=== PATIENT | female | born 1960 | race American Indian/Alaskan Native ===

== ENCOUNTER 2020-12-03 14:43 | Inpatient (IN) | payer OTHER, SELFPAY ==
[2020-12-03] MEDS ORDERED: ASPIRIN 325 MG TAB PO ONE (14:54)
--- NOTE | 2020-12-03 15:40 | XRay Report ---
CHEST 2 VIEWS INDICATION / CLINICAL INFORMATION: CP/ DIFFICULTY BREATHING. COMPARISON: None available. FINDINGS: SUPPORT DEVICES: None. HEART / MEDIASTINUM: No significant abnormality. LUNGS / PLEURA: Diffuse bilateral pulmonary opacities most significant in the left lower lung. No pne umothorax. Signer Name: Jacob Alvarenga MD Signed: 12/03/2020 3:36 PM Workstation Name: [email or web address]
[2020-12-03 16:14] LABS: Basophils % (Auto) 0.6 % (0.0-1.8); Eosinophils % (Auto) 0.2 % (0.0-4.3); Hematocrit 37.4 % (30.3-42.9); Hemoglobin 12.2 gm/dl (10.1-14.3); Lymphocytes # (Auto) 0.6 K/mm3 (1.2-5.4); Lymphocytes % (Auto) 7.5 % (13.4-35.0); Mean Corpuscular HGB Conc 33 % (30-34); Mean Corpuscular Volume 83 fl (79-97); Monocytes # (Auto) 0.5 K/mm3 (0.0-0.8); Platelet Count 226 K/mm3 (140-440); Red Blood Count 4.48 M/mm3 (3.65-5.03)
[2020-12-03 16:24] LABS: INR 1.05 (0.87-1.13)
[2020-12-03 16:25] LABS: Partial Thromboplastin Time 37.1 Sec. (24.2-36.6)
[2020-12-03 16:35] LABS: Alanine Aminotransferase 18 units/L (7-56); Albumin 3.4 g/dL (3.9-5); BUN/Creatinine Ratio 16; Blood Urea Nitrogen 16 mg/dL (7-17); Calcium 8.2 mg/dL (8.4-10.2); Hemolysis Index 4
--- NOTE | 2020-12-04 01:52 | Emergency Department Report ---
ED Shortness of Breath HPI - General Chief Complaint: Dyspnea/Respdistress Stated Complaint: O2 LOW/DOWN TO 69 Time Seen by Provider: 12/04/20 01:30 Source: patient Mode of arrival: Wheelchair Limitations: No Limitations - History of Present Illness Initial Comments: Patient is a 60-year-old female who presents emergency room with complaints of low oxygen and shortness of breath and cough. Patient states her symptoms started this morning. Patient states is making it difficult to breathe. Patient that she will can touch of breath. Patient states she is normally on 2 L of oxygen at home and her oxygen saturation was 69% and she increase it to 4 L and is now 90%. Patient states that her shortness of breath is better with rest and increased oxygen. Patient states her shortness of breath is worse with exertion. Patient also complains of fever. Patient states she got her COVID- 19 vaccine, her second 1 last Tuesday. Patient states she does not recall having any exposure to COVID-19. Patient states she was started on oxygen July 2020 but she is not sure why. Patient states she has a lung condition but does not recall the name. Patient denies recent travel. Patient denies recent international travel. Patient denies exposure to the novel coronavirus. Patient denies sick contacts. Patient denies loss of smell. Patient denies diarrhea. Patient denies coming in contact with anybody with symptoms of the novel coronavirus. Complaint: shortness of breath, cough -: Sudden Pain Scale: 0 Improves With: rest Worsens With: exertion Associated Symptoms: fever, cough - Related Data Home Oxygen Therapy: Yes Home Oxygen Amount: 2 Liters Allergies Allergy/AdvReac Type Severity Reaction Status Date / Time No Known Allergies Allergy Unverified 12/03/20 14:45 ED Review of Systems ROS: Stated complaint: O2 LOW/DOWN TO 69 Other details as noted in HPI Constitutional: see HPI, chills, fever Eyes: denies: eye pain, eye discharge, vision change ENT: denies: ear pain, throat pain Respiratory: see HPI, cough, shortness of breath. denies: wheezing Cardiovascular: denies: chest pain, palpitations Endocrine: no symptoms reported Gastrointestinal: denies: abdominal pain, nausea, diarrhea Genitourinary: denies: urgency, dysuria, discharge Musculoskeletal: denies: back pain, joint swelling, arthralgia Skin: denies: rash, lesions Neurological: denies: headache, weakness, paresthesias Psychiatric: denies: anxiety, depression Hematological/Lymphatic: denies: easy bleeding, easy bruising ED Past Medical Hx - Past Medical History Previous Medical History?: Yes Additional medical history: NIGHT O2 - Surgical History Past Surgical History?: No - Family History Family history: no significant - Social History Smoking Status: Never Smoker Substance Use Type: None ED Physical Exam - General Limitations: No Limitations General appearance: alert, in no apparent distress - Head Head exam: Present: atraumatic, normocephalic - Eye Eye exam: Present: normal appearance - ENT ENT exam: Present: mucous membranes moist - Neck Neck exam: Present: normal inspection - Respiratory Respiratory exam: Present: respiratory distress, decreased breath sounds - Cardiovascular Cardiovascular Exam: Present: regular rate, normal rhythm. Absent: systolic murmur, diastolic murmur, rubs, gallop - GI/Abdominal GI/Abdominal exam: Present: soft, normal bowel sounds - Extremities Exam Extremities exam: Present: normal inspection - Back Exam Back exam: Present: normal inspection - Neurological Exam Neurological exam: Present: alert, oriented X3 - Psychiatric Psychiatric exam: Present: normal affect, normal mood - Skin Skin exam: Present: warm, dry, intact, normal color. Absent: rash ED Course Vital Signs 12/03/20 14:48 Temperature 100.7 F H Pulse Rate 111 H Respiratory 20 Rate Blood Pressure 142/77 O2 Sat by Pulse 93 Oximetry - Reevaluation(s) Reevaluation #1: Patient normally takes 2 L of oxygen at home and the patient was placed on 2 L and the patient was still 88%. Patient was increased to 5 L and the patient ox saturation improved to 94%. 12/04/20 01:49 Reevaluation #2: I discussed all results with patient. I discussed plan of care with patient. Patient agrees with plan of care and admission. Patient to be admitted to the hospitalist service. 12/04/20 02:40 - Consultations Consultation #1: Hospitalist consulted for admission. Hospitalist to admit patient. 12/04/20 02:39 ED Medical Decision Making - Lab Data Result diagrams: 12/03/20 15:30 12/03/20 15:30 - EKG Data -: EKG Interpreted by Me EKG shows normal: sinus rhythm, axis, intervals, QRS complexes, ST-T waves Rate: tachycardia - Radiology Data Radiology results: report reviewed, image reviewed interpreted by me: Chest x-ray: Bilateral pneumonia, no pneumothorax, no foreign body, no osseous findings, CHEST 2 VIEWS INDICATION / CLINICAL INFORMATION: CP/ DIFFICULTY BREATHING. COMPARISON: None available. FINDINGS: SUPPORT DEVICES: None. HEART / MEDIASTINUM: No significant abnormality. LUNGS / PLEURA: Diffuse bilateral pulmonary opacities most significant in the left lower lung. No pneumothorax. - Medical Decision Making Patient is a 60-year-old female that presents emergency room with complaints of low oxygen, shortness of breath cough and fever. Patient recently received her second COVID-19 vaccine. Patient had labs done which were essentially unremarkable. Patient had 3 - troponins. Patient had normal WBC. Patient had a chest x-ray which was positive for atypical pneumonia. Patient given steroids and antibiotics. Patient placed on 4 L of oxygen and her oxygen improved. Patient admitted to the hospital service for further evaluation treatment. Critical care time documented due to the multiple reassessments, prolonged time at the bedside, interpretation of diagnostics and labs. - Differential Diagnosis PUI, pneumonia, Covid, hypoxia, S0B, URI Critical Care Time: Yes Critical care time in (mins) excluding proc time.: 35 Critical care attestation.: If time is entered above; I have spent that time in minutes in the direct care of this critically ill patient, excluding procedure time. Critical Care Time: 35 minutes ED Disposition Clinical Impression: SOB (shortness of breath), Person under investigation for COVID-19 Pneumonia Qualifiers: Pneumonia type: due to unspecified organism Laterality: bilateral Lung lo cation: unspecified part of lung Qualified Code(s): J18.9 - Pneumonia, unspecified organism Respiratory failure Qualifiers: Chronicity: acute on chronic Respiratory failure complication: hypoxia Qualified Code(s): J96.21 - Acute and chronic respiratory failure with hypoxia Disposition: OP ADMIT IP TO THIS HOSP Is pt being admited?: Yes Does the pt Need Aspirin: No Condition: Critical Instructions: Bacterial Pneumonia (ED) Time of Disposition: 02:20
[2020-12-04] MEDS ORDERED: cefTRIAXone/NS 2 GM/100 ML 2 GM/100 ML BAG IV ONE (01:56)
[2020-12-04] MEDS ORDERED: dexAMETHasone 4 MG/ML VIAL IV ONE (01:56)
[2020-12-04] MEDS ORDERED: AZITHROMYCIN/NS 500 MG/250 ML 500 MG/250 ML BAG IV SCH ×3 (02:00→22:00)
[2020-12-04 03:42] LABS: C-Reactive Protein 25.2 mg/dL (0.00-1.30)
[2020-12-04] MEDS ORDERED: oxyCODONE /ACETAMINOPHEN 5-325MG TAB PO PRN (04:00)
[2020-12-04] MEDS ORDERED: HYDROmorphone 1 MG/1 ML INJ IV PRN (04:00)
[2020-12-04] MEDS ORDERED: ONDANSETRON 4 MG/2 ML INJ IV PRN (04:00)
[2020-12-04] MEDS ORDERED: ALBUTEROL 2.5 MG/3 ML NEBU IH PRN (04:00)
[2020-12-04] MEDS ORDERED: ACETAMINOPHEN 325 MG TAB PO PRN (04:00)
--- NOTE | 2020-12-04 04:08 | History and Physical Report ---
History of Present Illness Date of examination: 12/04/20 Date of admission: 12/04/20 Chief complaint: Shortness of breath respiratory distress History of present illness: 60-year-old female with history of home oxygen 2 L was brought to the emergency room because of low oxygen and shortness of breath and cough since this morning. Patient complaint difficulty breathing. Patient states she is normally on 2 L of oxygen at home and her oxygen saturation was 69% and she increase it to 4 L and is now 90%. Patient states that her shortness of breath is better with rest and increased oxygen. Patient states her shortness of breath is worse with exertion. Patient also complains of fever. Patient states she got her COVID- 19 vaccine, her second 1 last Tuesday. Patient states she does not recall having any exposure to COVID-19. Patient denies recent travel. Patient denies recent international travel. Patient denies exposure to the novel coronavirus. Patient denies sick contacts. Patient denies loss of smell. Patient denies diarrhea. Patient denies coming in contact with anybody with symptoms of the novel coronavirus. In the emergency room patient chest x-ray compatible with pneumonia Past History Past Medical History: COPD Medications and Allergies Allergies Allergy/AdvReac Type Severity Reaction Status Date / Time No Known Allergies Allergy Unverified 12/03/20 14:45 Active Meds: Active Medications Azithromycin (Zithromax/Ns) 500 mg in 250 mls @ 250 mls/hr IV Q24HR [facility] Last Admin: 12/04/20 03:51 Dose: 250 mls/hr Documented by: Review of Systems Cardiovascular: shortness of breath Respiratory: cough, shortness of breath, dyspnea on exertion Exam - Constitutional Vitals: Temp Pulse Resp BP Pulse Ox 100.7 F H 111 H 20 142/77 93 12/03/20 14:48 12/03/20 14:48 12/03/20 14:48 12/03/20 14:48 12/03/20 14:48 General appearance: Present: no acute distress, well-nourished - EENT Eyes: Present: PERRL ENT: hearing intact, clear oral mucosa - Neck Neck: Present: supple, normal ROM - Respiratory Respiratory effort: normal Respiratory: bilateral: diminished - Cardiovascular Heart Sounds: Present: S1 & S2. Absent: rub, click - Extremities Extremities: pulses symmetrical, No edema Peripheral Pulses: within normal limits - Abdominal General gastrointestinal: Present: soft, non-tender, non-distended, normal bowel sounds Female genitourinary: Present: normal - Integumentary Integumentary: Present: clear, warm, dry - Musculoskeletal Musculoskeletal: gait normal, strength equal bilaterally - Psychiatric Psychiatric: appropriate mood/affect, intact judgment & insight - Neurologic Neurologic: CNII-XII intact, moves all extremities HEART Score - HEART Score Troponin: Troponin T < 0.010 ng/mL (0.00-0.029) 12/03/20 21:02 Results - Labs CBC & Chem 7: 12/03/20 15:30 12/04/20 02:30 Labs: Laboratory Last Values WBC 8.1 K/mm3 (4.5-11.0) 12/03/20 15:30 RBC 4.48 M/mm3 (3.65-5.03) 12/03/20 15:30 Hgb 12.2 gm/dl (10.1-14.3) 12/03/20 15:30 Hct 37.4 % (30.3-42.9) 12/03/20 15:30 MCV 83 fl (79-97) 12/03/20 15:30 MCH 27 pg (28-32) L 12/03/20 15:30 MCHC 33 % (30-34) 12/03/20 15:30 RDW 15.0 % (13.2-15.2) 12/03/20 15:30 Plt Count 226 K/mm3 (140-440) 12/03/20 15:30 Lymph % (Auto) 7.5 % (13.4-35.0) L 12/03/20 15:30 [place] % (Auto) 6.0 % (0.0-7.3) 12/03/20 15:30 Eos % (Auto) 0.2 % (0.0-4.3) 12/03/20 15:30 Baso % (Auto) 0.6 % (0.0-1.8) 12/03/20 15:30 Lymph # (Auto) 0.6 K/mm3 (1.2-5.4) L 12/03/20 15:30 [place] # (Auto) 0.5 K/mm3 (0.0-0.8) 12/03/20 15:30 Eos # (Auto) 0.0 K/mm3 (0.0-0.4) 12/03/20 15:30 Baso # (Auto) 0.0 K/mm3 (0.0-0.1) 12/03/20 15:30 Seg Neutrophils % 85.7 % (40.0-70.0) H 12/03/20 15:30 Seg Neutrophils # 7.0 K/mm3 (1.8-7.7) 12/03/20 15:30 PT 14.3 Sec. (12.2-14.9) 12/03/20 15:30 INR 1.05 (0.87-1.13) 12/03/20 15:30 APTT 37.1 Sec. (24.2-36.6) H 12/03/20 15:30 D-Dimer 630.97 ng/mlDDU (0-234) H 12/04/20 02:30 Sodium 133 mmol/L (137-145) L 12/03/20 15:30 Potassium 3.6 mmol/L (3.6-5.0) 12/03/20 15:30 Chloride 96.6 mmol/L (98-107) L 12/03/20 15:30 Carbon Dioxide 23 mmol/L (22-30) 12/03/20 15:30 Anion Gap 17 mmol/L 12/03/20 15:30 BUN 16 mg/dL (7-17) 12/03/20 15:30 Creatinine 1.0 mg/dL (0.6-1.2) 12/03/20 15:30 Estimated GFR 57 ml/min 12/03/20 15:30 BUN/Creatinine Ratio 16 % 12/03/20 15:30 Glucose 101 mg/dL (65-100) H 12/04/20 02:30 Calcium 8.2 mg/dL (8.4-10.2) L 12/03/20 15:30 Ferritin 614.7 ng/mL (10.0-200.0) H 12/04/20 02:30 Total Bilirubin 0.40 mg/dL (0.1-1.2) 12/03/20 15:30 AST 35 units/L (5-40) 12/03/20 15:30 ALT 18 units/L (7-56) 12/03/20 15:30 Alkaline Phosphatase 58 units/L (35-129) 12/03/20 15:30 Lactate Dehydrogenase 421 units/L (91-180) H 12/04/20 02:30 Troponin T < 0.010 ng/mL (0.00-0.029) 12/03/20 21:02 C-Reactive Protein 25.20 mg/dL (0.00-1.30) H 12/04/20 02:30 Total Protein 8.4 g/dL (6.3-8.2) H 12/03/20 15:30 Albumin 3.4 g/dL (3.9-5) L 12/03/20 15:30 Albumin/Globulin Ratio 0.7 % 12/03/20 15:30 - Imaging and Cardiology Chest x-ray: report reviewed Assessment and Plan VTE prophylaxis?: Chemical Plan of care discussed with patient/family: Yes - Patient Problems (1) Person under investigation for COVID-19 Current Visit: Yes Status: Acute Plan to address problem: Admit the patient to the medical telemetry. Oxygen via nasal cannula 3 L/min. DuoNeb by nebulizer every 4 hours. Rocephin 2 g IV daily. Zithromax 500 mg IV daily. Dexamethasone 6 mg IV daily. We do the blood cultures sputum culture. Will consult infectious disease for further evaluation and treatment. Follow the Covid PCR and Covid inflammatory marker (2) Pneumonia Current Visit: Yes Status: Acute Qualifiers: Pneumonia type: due to unspecified organism Laterality: bilateral Lung location: unspecified part of lung Qualified Code(s): J18.9 - Pneumonia, unspecified organism Plan to address problem: Oxygen via nasal cannula 3 L/min. DuoNeb by nebulizer every 4 hours. Rocephin 2 g IV daily. Zithromax 500 mg IV daily. Dexamethasone 6 mg IV daily. We do the blood cultures sputum culture. Will consult infectious disease for further evaluation and treatment. Follow the Covid PCR and Covid inflammatory marker (3) Respiratory failure Current Visit: Yes Status: Acute Qualifiers: Chronicity: acute on chronic Respiratory failure complication: hypoxia Qualified Code(s): J96.21 - Acute and chronic respiratory failure with hypoxia Plan to address problem: Oxygen via nasal cannula 3 L/min. DuoNeb by nebulizer every 4 hours. (4) DVT prophylaxis Current Visit: Yes Status: Acute Plan to address problem: Heparin 5000 units subcu every 8 hours for DVT prophylaxis. Pepcid 20 mg p.o. twice daily for GI prophylaxis. Patient is a full code
[2020-12-04] MEDS: HEPARIN 5,000 UNIT/1 ML VIAL SUB-Q SCH ×3 (08:41→22:45)
[2020-12-04] MEDS: IPRATROPIUM/ALBUTEROL SULFATE 3 ML AMPUL.NEB IH SCH ×3 (08:42→20:10)
[2020-12-04] MEDS: FAMOTIDINE 20 MG TAB PO SCH ×2 (10:13→22:46)
[2020-12-04] MEDS: dexAMETHasone 4 MG/ML VIAL IV SCH (10:14)
--- NOTE | 2020-12-04 13:22 | Consultation ---
History of Present Illness - Reason for Consult Consult date: 12/04/20 COVID PUI Requesting physician: BOO NEWELL - History of Present Illness The patient is a 60-year-old female with COPD on home oxygen admitted to the hospital with cough and shortness of breath. She was hypoxic at her baseline oxygen level. Patient is status post COVID-19 vaccination. Upon evaluation in the ER, had a low-grade fever of 100.7 F. Labs showed normal WBC, D-dimer 630, ferritin 614, procalcitonin 0.05, CRP 25.2. Chest x-ray with diffuse bilateral patchy pneumonia. Review of Systems: reviewed in the chart, unable to obtain, minimize risk of transmission Past History Past Medical History: COPD Medications and Allergies Allergies Allergy/AdvReac Type Severity Reaction Status Date / Time No Known Allergies Allergy Unverified 12/03/20 14:45 Active Meds: Active Medications Acetaminophen (Acetaminophen 325 Mg Tab) 650 mg PO Q4H PRN PRN Reason: Pain MILD(1-3)/Fever >100.5/[place] Albuterol (Albuterol 2.5 Mg/3 Ml Nebu) 2.5 mg IH Q4HRT PRN PRN Reason: Shortness Of Breath Albuterol/Ipratropium (Ipratropium/Albuterol Sulfate 3 Ml Ampul.Neb) 1 ampul IH Q6HRT [facility] Last Admin: 12/04/20 08:42 Dose: 1 ampul Documented by: Dexamethasone (Dexamethasone 4 Mg/Ml Vial) 6 mg IV DAILY [facility] Stop: 12/13/20 10:01 Last Admin: 12/04/20 10:14 Dose: 6 mg Documented by: Famotidine (Famotidine 20 Mg Tab) 20 mg PO BID [facility] Last Admin: 12/04/20 10:13 Dose: 20 mg Documented by: Heparin Sodium (Porcine) (Heparin 5,000 Unit/1 Ml Vial) 5,000 unit SUB-Q Q8HR [facility] Last Admin: 12/04/20 08:41 Dose: 5,000 unit Documented by: Hydromorphone HCl (Hydromorphone 1 Mg/1 Ml Inj) 0.5 mg IV Q3H PRN PRN Reason: Pain , Severe (7-10) Ceftriaxone Sodium (Rocephin/Ns 2 Gm/100 Ml) 2 gm in 100 mls @ 200 mls/hr IV QHS [facility]; Protocol Stop: 12/07/20 23:59 Azithromycin (Zithromax/Ns) 500 mg in 250 mls @ 250 mls/hr IV QHS [facility] Stop: 12/07/20 22:59 Ondansetron HCl (Ondansetron 4 Mg/2 Ml Inj) 4 mg IV Q8H PRN PRN Reason: Nausea And Vomiting Oxycodone/Acetaminophen (Oxycodone /Acetaminophen 5-325mg Tab) 1 tab PO Q6H PRN PRN Reason: Pain, Moderate (4-6) Sodium Chloride (Sodium Chloride 0.9% 10 Ml Flush Syringe) 10 ml IV BID [facility] Last Admin: 12/04/20 10:14 Dose: 10 ml Documented by: Sodium Chloride (Sodium Chloride 0.9% 10 Ml Flush Syringe) 10 ml IV PRN PRN PRN Reason: LINE FLUSH Physical Examination - Physical Exam Narrative exam: Physical Exam (reviewed in chart to minimize risk of transmission) Constitutional: deferred Head, Ears, Nose: deferred Eyes: deferred Neck: deferred Oral: deferred Cardiovascular: deferred Respiratory: deferred GI: deferred Musculoskeletal: deferred Skin: deferred Hem/Lymphatic: deferred Psych: deferred Neurological: deferred - Constitutional Vitals: Vital Signs Temp Pulse Resp BP Pulse Ox 98.2 F 97 H 22 135/58 96 12/04/20 09:34 12/04/20 12:38 12/04/20 12:38 12/04/20 12:38 12/04/20 12:38 Temperature -Last 24 Hours Temperature 98.2 F Temperature 100.7 F Results - Labs CBC & Chem 7: 12/03/20 15:30 12/04/20 02:30 Labs: Abnormal lab results 12/03/20 12/03/20 12/03/20 Range/Units 15:30 15:30 15:30 MCH 27 L (28-32) pg Lymph % (Auto) 7.5 L (13.4-35.0) % Lymph # (Auto) 0.6 L (1.2-5.4) K/mm3 Seg Neutrophils % 85.7 H (40.0-70.0) % APTT 37.1 H (24.2-36.6) Sec. D-Dimer (0-234) ng/mlDDU Sodium 133 L (137-145) mmol/L Chloride 96.6 L (98-107) mmol/L Glucose 114 H (65-100) mg/dL Calcium 8.2 L (8.4-10.2) mg/dL Ferritin (10.0-200.0) ng/mL Lactate Dehydrogenase (91-180) units/L C-Reactive Protein (0.00-1.30) mg/dL Total Protein 8.4 H (6.3-8.2) g/dL Albumin 3.4 L (3.9-5) g/dL 12/04/20 12/04/20 12/04/20 Range/Units 02:30 02:30 02:30 MCH (28-32) pg Lymph % (Auto) (13.4-35.0) % Lymph # (Auto) (1.2-5.4) K/mm3 Seg Neutrophils % (40.0-70.0) % APTT (24.2-36.6) Sec. D-Dimer 630.97 H (0-234) ng/mlDDU Sodium (137-145) mmol/L Chloride (98-107) mmol/L Glucose 101 H (65-100) mg/dL Calcium (8.4-10.2) mg/dL Ferritin 614.7 H (10.0-200.0) ng/mL Lactate Dehydrogenase 421 H (91-180) units/L C-Reactive Protein 25.20 H (0.00-1.30) mg/dL Total Protein (6.3-8.2) g/dL Albumin (3.9-5) g/dL - Imaging and Cardiology Chest x-ray: report reviewed, image reviewed (b/l patchy pneumonia) Assessment and Plan Cultures: SARS CoV2 PCR: Pending A/P: 60-year-old female with COPD on home oxygen admitted with: #Bilateral pneumonia: Agree with COVID-19 rule out. #Acute on chronic hypoxic respiratory failure: On nasal cannula #COPD on home oxygen Recs: Follow-up COVID-19 PCR, if positive, start Remdesivir Continue steroids for now given COPD Ceftriaxone discontinued, procalcitonin is low Complete 3 days of azithromycin Tj Gonzales MD, FACP [facility] O: [phone] F: [phone]
--- NOTE | 2020-12-04 16:59 | Progress Note ---
Assessment and Plan Assessment and plan: --COVID-19 infection positive test Current Visit: Yes Status: Acute Droplet, contact isolation Oxygen, titrate O2 sats to more than 90% Dexamethasone, remdesivir[patient was hypoxic on admission] Check inflammatory markers Home O2 evaluation Prone positioning as tolerated Patient reports that she took COVID-19 vaccination ID following -- Acute hypoxic respiratory failure Current Visit: Yes Status: Acute Requiring supplemental oxygen on admission Oxygen titrate O2 sats to more than 90% BiPAP as needed Home oxygen evaluation prior to discharge Pulmonary consult if needed -- PUI/high suspicion for COVID-19 on admission Current Visit: Yes Status: Acute PCR test positive --COVID-19 pneumonia; Current Visit: Yes Status: Acute Oxygen titrate O2 sats more than 90% Empiric antibiotics Rocephin and Zithromax Follow cultures, supportive care --elevated D-dimers; Current Visit: Yes Status: Acute CTA chest; no large PE identified, Limited eval of pulmonary arteries bilateral atypical appearing pneumonia,, prominent mediastinal and left axillary nodes Follow-up bilateral lower extremity venous Doppler to rule out DVT --Morbid obesity; BMI 56.3 Current Visit: Yes Status: Chronic Patient needs dietary modification, exercise as tolerated and weight reduction, When medically stable And may also need outpatient pulmonary evaluation to rule out obstructive sleep apnea --DVT prophylaxis--GI prophylaxis Current Visit: Yes Status: Acute Subcu heparin --GI prophylaxis Pepcid 20 mg p.o. twice daily We will closely monitor the patient and adjust the management as needed Plan of care reviewed with the patient and her nurse Pantograph Machine Operator recommendations noted and appreciated Critical care time 35 minutes 12/04/2020 ; patient was admitted with PUI, luis PCR test is positive COVID-19 infection; Hypoxia on admission Continue dexamethasone, remdesivir Inflammatory markers, oxygen evaluation ID following History Interval history: I have seen and evaluated the patient in ER awaiting room assignment I have followed the isolation precautions and PPE protocols per COVID-19 guidelines throughout my interaction with the patient. Patient was initially admitted with PUI/high suspicion for Covid Lusi PCR test is positive, Patient is in isolation Complains of mild shortness of breath Vital signs noted Hospitalist Physical - Constitutional Vitals: Temp Pulse Resp BP Pulse Ox 98.2 F 98 H 16 126/70 99 12/04/20 09:34 12/04/20 14:59 12/04/20 15:33 12/04/20 15:33 12/04/20 15:33 General appearance: Present: no acute distress, well-nourished, obese (Morbidly obese) - EENT Eyes: Present: PERRL, EOM intact - Neck Neck: Present: supple, normal ROM - Respiratory Respiratory effort: normal Respiratory: bilateral: diminished, rhonchi, negative: rales, wheezing - Cardiovascular Rhythm: regular Heart Sounds: Present: S1 & S2 - Extremities Extremities: no ischemia, No edema - Abdominal General gastrointestinal: soft, non-tender, non-distended, normal bowel sounds - Integumentary Integumentary: Present: clear, warm - Psychiatric Psychiatric: appropriate mood/affect, cooperative - Neurologic Neurologic: moves all extremities HEART Score - HEART Score Troponin: Troponin T < 0.010 ng/mL (0.00-0.029) 12/03/20 21:02 Results - Labs CBC & Chem 7: 12/03/20 15:30 12/04/20 02:30 Labs: Laboratory Last Values WBC 8.1 K/mm3 (4.5-11.0) 12/03/20 15:30 RBC 4.48 M/mm3 (3.65-5.03) 12/03/20 15:30 Hgb 12.2 gm/dl (10.1-14.3) 12/03/20 15:30 Hct 37.4 % (30.3-42.9) 12/03/20 15:30 MCV 83 fl (79-97) 12/03/20 15:30 MCH 27 pg (28-32) L 12/03/20 15:30 MCHC 33 % (30-34) 12/03/20 15:30 RDW 15.0 % (13.2-15.2) 12/03/20 15:30 Plt Count 226 K/mm3 (140-440) 12/03/20 15:30 Lymph % (Auto) 7.5 % (13.4-35.0) L 12/03/20 15:30 Mcculloch % (Auto) 6.0 % (0.0-7.3) 12/03/20 15:30 Eos % (Auto) 0.2 % (0.0-4.3) 12/03/20 15:30 Baso % (Auto) 0.6 % (0.0-1.8) 12/03/20 15:30 Lymph # (Auto) 0.6 K/mm3 (1.2-5.4) L 12/03/20 15:30 M[place]ulloch # (Auto) 0.5 K/mm3 (0.0-0.8) 12/03/20 15:30 Eos # (Auto) 0.0 K/mm3 (0.0-0.4) 12/03/20 15:30 Baso # (Auto) 0.0 K/mm3 (0.0-0.1) 12/03/20 15:30 Seg Neutrophils % 85.7 % (40.0-70.0) H 12/03/20 15:30 Seg Neutrophils # 7.0 K/mm3 (1.8-7.7) 12/03/20 15:30 PT 14.3 Sec. (12.2-14.9) 12/03/20 15:30 INR 1.05 (0.87-1.13) 12/03/20 15:30 APTT 37.1 Sec. (24.2-36.6) H 12/03/20 15:30 D-Dimer 630.97 ng/mlDDU (0-234) H 12/04/20 02:30 Sodium 133 mmol/L (137-145) L 12/03/20 15:30 Potassium 3.6 mmol/L (3.6-5.0) 12/03/20 15:30 Chloride 96.6 mmol/L (98-107) L 12/03/20 15:30 Carbon Dioxide 23 mmol/L (22-30) 12/03/20 15:30 Anion Gap 17 mmol/L 12/03/20 15:30 BUN 16 mg/dL (7-17) 12/03/20 15:30 Creatinine 1.0 mg/dL (0.6-1.2) 12/03/20 15:30 Estimated GFR 57 ml/min 12/03/20 15:30 BUN/Creatinine Ratio 16 % 12/03/20 15:30 Glucose 101 mg/dL (65-100) H 12/04/20 02:30 Calcium 8.2 mg/dL (8.4-10.2) L 12/03/20 15:30 Ferritin 614.7 ng/mL (10.0-200.0) H 12/04/20 02:30 Total Bilirubin 0.40 mg/dL (0.1-1.2) 12/03/20 15:30 AST 35 units/L (5-40) 12/03/20 15:30 ALT 18 units/L (7-56) 12/03/20 15:30 Alkaline Phosphatase 58 units/L (35-129) 12/03/20 15:30 Lactate Dehydrogenase 421 units/L (91-180) H 12/04/20 02:30 Troponin T < 0.010 ng/mL (0.00-0.029) 12/03/20 21:02 C-Reactive Protein 25.20 mg/dL (0.00-1.30) H 12/04/20 02:30 Total Protein 8.4 g/dL (6.3-8.2) H 12/03/20 15:30 Albumin 3.4 g/dL (3.9-5) L 12/03/20 15:30 Albumin/Globulin Ratio 0.7 % 12/03/20 15:30 Procalcitonin < 0.05 ng/mL (<0.15) 12/04/20 02:30 Coronavirus (PCR) Positive (Negative) A 12/04/20 Unknown Active Medications - Current Medications Current Medications: Generic Name Dose Route Start Last Admin Trade Name Freq PRN Reason Stop Dose Admin Acetaminophen 650 mg 12/04/20 04:00 Acetaminophen 325 Mg Tab PO Q4H PRN Pain MILD(1-3)/Fever >100.5/[place] Albuterol 2.5 mg 12/04/20 04:00 Albuterol 2.5 Mg/3 Ml Nebu IH Q4HRT PRN Shortness Of Breath Albuterol/Ipratropium 1 ampul 12/04/20 08:00 12/04/20 14:23 Ipratropium/Albuterol Sulfate 3 Ml Ampul.Neb IH 1 ampul Q6HRT TAYLOR Administration Dexamethasone 6 mg 12/04/20 10:00 12/04/20 10:14 Dexamethasone 4 Mg/Ml Vial IV 12/13/20 10:01 6 mg DAILY TAYLOR Administration Famotidine 20 mg 12/04/20 10:00 12/04/20 10:13 Famotidine 20 Mg Tab PO 20 mg BID TAYLOR Administration Heparin Sodium (Porcine) 5,000 unit 12/04/20 06:00 12/04/20 14:23 Heparin 5,000 Unit/1 Ml Vial SUB-Q 5,000 unit Q8HR TAYLOR Administration Hydromorphone HCl 0.5 mg 12/04/20 04:00 Hydromorphone 1 Mg/1 Ml Inj IV Q3H PRN Pain , Severe (7-10) Ceftriaxone Sodium 2 gm in 100 mls @ 200 mls/hr 12/04/20 22:00 Rocephin/Ns 2 Gm/100 Ml IV 12/07/20 23:59 QHS [facility] Protocol Azithromycin 500 mg in 250 mls @ 250 mls/hr 12/04/20 22:00 Zithromax/Ns IV 12/07/20 [facility] mg/ Sodium 250 mls @ 500 mls/hr 12/04/20 16:53 Chloride IV 12/04/20 17:22 ONCE ONE REMDESIVIR 100 mg/ Sodium 250 mls @ 500 mls/hr 12/05/20 21:00 Chloride IV 12/08/20 21:29 Q24HR@2100 TAYLOR Ondansetron HCl 4 mg 12/04/20 04:00 Ondansetron 4 Mg/2 Ml Inj IV Q8H PRN Nausea And Vomiting Oxycodone/Acetaminophen 1 tab 12/04/20 04:00 Oxycodone /Acetaminophen 5-325mg Tab PO Q6H PRN Pain, Moderate (4-6) Sodium Chloride 10 ml 12/04/20 10:00 12/04/20 10:14 Sodium Chloride 0.9% 10 Ml Flush Syringe IV 10 ml BID TAYLOR Administration Sodium Chloride 10 ml 12/04/20 04:00 Sodium Chloride 0.9% 10 Ml Flush Syringe IV PRN PRN LINE FLUSH Sodium Chloride 50 ml 12/04/20 21:00 Sodium Chloride 0.9% 50 Ml Ivpb IV 12/08/20 21:01 Q24HR@2100 [facility]
[2020-12-04] MEDS ORDERED: REMDESIVIR 200 MG in SODIUM CHLORIDE 0.9% 250ML 250 ML IV ONE (17:30)
--- NOTE | 2020-12-04 18:38 | Cat Scan Report ---
CTA CHEST WITH CONTRAST INDICATION / CLINICAL INFORMATION: Covid 19 pneumonia. TECHNIQUE: Axial CT images were obtained through the chest after injection of Omnipaque 350, 100 cc I V contrast. 3 plane MIP and/or 3D reconstructions were produced. All CT scans at this location are pe rformed using CT dose reduction for ALARA by means of automated exposure control. COMPARISON: None available. FINDINGS: PULMONARY ARTERIES: Suboptimal opacification due to body habitus and motion artifact. THORACIC AORTA: No significant abnormality. HEART: No significant abnormality. CORONARY ARTERY CALCIFICATION: None. MEDIASTINUM / EDI: Prominent mediastinal nodes are likely reactive. PLEURA: No pleural effusion. No pneumothorax. LUNGS: Bilateral groundglass opacity and infiltrates greatest at the lung bases. ADDITIONAL FINDINGS: Prominent left axillary nodes. The largest is medially located measuring 1.2 cm in the greatest short axis dimension. UPPER ABDOMEN: No acute findings. SKELETAL STRUCTURES: No significant osseous abnormality. IMPRESSION: 1. No large PE identified. Limited evaluation of the pulmonary arteries. 2. Bilateral atypical appearing pneumonia. 3. Prominent mediastinal and left axillary nodes. Signer Name: Jomar Mcclure MD Signed: 12/04/2020 6:34 PM Workstation Name: [id number]
[2020-12-04 19:14] LABS: Alanine Aminotransferase 17 units/L (7-56); Blood Urea Nitrogen 12 mg/dL (7-17); Calcium 8.5 mg/dL (8.4-10.2); Hemolysis Index 65
[2020-12-04 19:16] LABS: BUN/Creatinine Ratio 24
[2020-12-04] MEDS: SODIUM CHLORIDE 0.9% 50 ML IVPB IV SCH ×2 (19:39→22:46)
[2020-12-04] MEDS ORDERED: cefTRIAXone/NS 2 GM/100 ML 2 GM/100 ML BAG IV SCH (22:00)
[2020-12-05] MEDS: IPRATROPIUM/ALBUTEROL SULFATE 3 ML AMPUL.NEB IH SCH ×4 (01:48→20:03)
[2020-12-05] MEDS: HEPARIN 5,000 UNIT/1 ML VIAL SUB-Q SCH ×3 (06:23→21:31)
--- NOTE | 2020-12-05 07:44 | Progress Note ---
Assessment and Plan Assessment and plan: Acute hypoxic respiratory failure Requiring supplemental oxygen on admission Oxygen titrate O2 sats to more than 90% BiPAP as needed, CPAP at night Home oxygen evaluation prior to discharge May consider pulmonary consult if patient respiratory status declines COVID-19 pneumonia COVID 19 PCR +, had received 2 doses of Pfizer Covid vaccine Oxygen titrate O2 sats more than 90% Droplet, contact isolation Oxygen, titrate O2 sats to more than 90% Dexamethasone, remdesivir[patient was hypoxic on admission], Zithromax discontinued by ID Procalcitonin low CXR on admission demonstrates diffuse bilateral pulmonary opacities mostly in the left lung. Please refer to official read by radiology CTA chest: No large PE identified, bilateral atypical pneumonia, prominent mediastinal and left axillary lymph node. Please refer to official read by radiology Bilateral lower extremity ultrasound: Negative for DVT in bilateral lower extremities. 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 Has undergone a sleep study. Uses CPAP at night. We will order for use at night. Hyponatremia (improving) Hyponatremia; gentle hydration with normal saline Closely monitor electrolytes Hypocalcemia (resolved) DVT prophylaxis--GI prophylaxis Subcutaneous heparin GI prophylaxis Pepcid 20 mg p.o. twice daily We will closely monitor the patient and adjust the management as needed Plan of care reviewed with the patient and her nurse Lightning Rod Installer recommendations noted and appreciated Hospital Course to date: 12/05/2020: Patient resting comfortably on encounter. All findings from CXR, CTA chest, bilateral lower extremity Dopplers noted. ID recommendations noted. Discontinued azithromycin. Patient has a history of obstructive sleep apnea, will order CPAP nightly. Will follow up for clinical improvement. 12/04/2020 : patient was admitted COVID-19 infection; Hypoxia on admission, Continue dexamethasone, remdesivir, Inflammatory markers q48h, oxygen evaluation, ID following History Interval history: No acute complaints. Resting comfortably. Patient states that she had gotten Pfizer vaccine. She denies any chest pain however understandably does have some shortness of breath. She has a history of obstructive sleep apnea per medical records and uses a CPAP at night. Hospitalist Physical - Physical exam Narrative exam: Constitutional: Alert, cooperative. No acute distress. Elevated BMI. Head, Ears, Nose: Normocephalic, atraumatic. External ears, nose normal nebulizer mask in place Eyes: Conjunctivae/corneas clear. No icterus. No ptosis. Neck: Supple, no meningeal signs Oral: Deferred Cardiovascular: S1, S2 + Respiratory: distant lung sounds. Bilateral wheezes. GI: Soft, non-tender; bowel sounds normal. No peritoneal signs Musculoskeletal: No pedal edema, no cyanosis. Skin: No rash or abscess Hem/Lymphatic: No palpable cervical or supraclavicular nodes. No lymphangitis Psych: Mood ok. Affect normal Neurological: Awake, alert, oriented. No gross abnormality - Constitutional Vitals: Temp Pulse Resp BP Pulse Ox 97.8 F 101 H 18 156/74 95 12/05/20 03:39 12/05/20 03:39 12/05/20 03:39 12/05/20 03:39 12/05/20 03:39 General appearance: Present: no acute distress, well-nourished, obese (Morbidly obese) HEART Score - HEART Score Troponin: Troponin T < 0.010 ng/mL (0.00-0.029) 12/03/20 21:02 Results - Labs CBC & Chem 7: 12/03/20 15:30 12/04/20 18:34 Labs: Laboratory Last Values WBC 8.1 K/mm3 (4.5-11.0) 12/03/20 15:30 RBC 4.48 M/mm3 (3.65-5.03) 12/03/20 15:30 Hgb 12.2 gm/dl (10.1-14.3) 12/03/20 15:30 Hct 37.4 % (30.3-42.9) 12/03/20 15:30 MCV 83 fl (79-97) 12/03/20 15:30 MCH 27 pg (28-32) L 12/03/20 15:30 MCHC 33 % (30-34) 12/03/20 15:30 RDW 15.0 % (13.2-15.2) 12/03/20 15:30 Plt Count 226 K/mm3 (140-440) 12/03/20 15:30 Lymph % (Auto) 7.5 % (13.4-35.0) L 12/03/20 15:30 Bland % (Auto) 6.0 % (0.0-7.3) 12/03/20 15:30 Eos % (Auto) 0.2 % (0.0-4.3) 12/03/20 15:30 Baso % (Auto) 0.6 % (0.0-1.8) 12/03/20 15:30 Lymph # (Auto) 0.6 K/mm3 (1.2-5.4) L 12/03/20 15:30 Bland # (Auto) 0.5 K/mm3 (0.0-0.8) 12/03/20 15:30 Eos # (Auto) 0.0 K/mm3 (0.0-0.4) 12/03/20 15:30 Baso # (Auto) 0.0 K/mm3 (0.0-0.1) 12/03/20 15:30 Seg Neutrophils % 85.7 % (40.0-70.0) H 12/03/20 15:30 Seg Neutrophils # 7.0 K/mm3 (1.8-7.7) 12/03/20 15:30 PT 14.3 Sec. (12.2-14.9) 12/03/20 15:30 INR 1.05 (0.87-1.13) 12/03/20 15:30 APTT 37.1 Sec. (24.2-36.6) H 12/03/20 15:30 D-Dimer 630.97 ng/mlDDU (0-234) H 12/04/20 02:30 Sodium 135 mmol/L (137-145) L 12/04/20 18:34 Potassium 4.4 mmol/L (3.6-5.0) D 12/04/20 18:34 Chloride 98.4 mmol/L (98-107) 12/04/20 18:34 Carbon Dioxide 25 mmol/L (22-30) 12/04/20 18:34 Anion Gap 16 mmol/L 12/04/20 18:34 BUN 12 mg/dL (7-17) 12/04/20 18:34 Creatinine 0.5 mg/dL (0.6-1.2) L 12/04/20 18:34 Estimated GFR > 60 ml/min 12/04/20 18:34 BUN/Creatinine Ratio 24 % 12/04/20 18:34 Glucose 185 mg/dL (65-100) H 12/04/20 18:34 Calcium 8.5 mg/dL (8.4-10.2) 12/04/20 18:34 Ferritin 614.7 ng/mL (10.0-200.0) H 12/04/20 02:30 Total Bilirubin 0.30 mg/dL (0.1-1.2) 12/04/20 18:34 AST 33 units/L (5-40) 12/04/20 18:34 ALT 17 units/L (7-56) 12/04/20 18:34 Alkaline Phosphatase 54 units/L (35-129) 12/04/20 18:34 Lactate Dehydrogenase 421 units/L (91-180) H 12/04/20 02:30 Troponin T < 0.010 ng/mL (0.00-0.029) 12/03/20 21:02 C-Reactive Protein 25.20 mg/dL (0.00-1.30) H 12/04/20 02:30 Total Protein 7.3 g/dL (6.3-8.2) 12/04/20 18:34 Albumin 3.0 g/dL (3.9-5) L 12/04/20 18:34 Albumin/Globulin Ratio 0.7 % 12/04/20 18:34 Procalcitonin < 0.05 ng/mL (<0.15) 12/04/20 02:30 Coronavirus (PCR) Positive (Negative) A 12/04/20 Unknown Warner/IV: Voiding Method Toilet Active Medications - Current Medications Current Medications: Generic Name Dose Route Start Last Admin Trade Name Freq PRN Reason Stop Dose Admin Acetaminophen 650 mg 12/04/20 04:00 Acetaminophen 325 Mg Tab PO Q4H PRN Pain MILD(1-3)/Fever >100.5/[place] Albuterol 2.5 mg 12/04/20 04:00 Albuterol 2.5 Mg/3 Ml Nebu IH Q4HRT PRN Shortness Of Breath Albuterol/Ipratropium 1 ampul 12/04/20 08:00 12/05/20 01:48 Ipratropium/Albuterol Sulfate 3 Ml Ampul.Neb IH 1 ampul Q6HRT TAYLOR Administration Dexamethasone 6 mg 12/04/20 10:00 12/04/20 10:14 Dexamethasone 4 Mg/Ml Vial IV 12/13/20 10:01 6 mg DAILY TAYLOR Administration Famotidine 20 mg 12/04/20 10:00 12/04/20 22:46 Famotidine 20 Mg Tab PO 20 mg BID TAYLOR Administration Heparin Sodium (Porcine) 5,000 unit 12/04/20 06:00 12/05/20 06:23 Heparin 5,000 Unit/1 Ml Vial SUB-Q 5,000 unit Q8HR TAYLOR Administration Hydromorphone HCl 0.5 mg 12/04/20 04:00 Hydromorphone 1 Mg/1 Ml Inj IV Q3H PRN Pain , Severe (7-10) Ceftriaxone Sodium 2 gm in 100 mls @ 200 mls/hr 12/04/20 22:00 12/05/20 02:47 Rocephin/Ns 2 Gm/100 Ml IV 12/07/20 23:59 Infused QHS TAYLOR Infusion Protocol Azithromycin 500 mg in 250 mls @ 250 mls/hr 12/04/20 22:00 12/05/20 02:48 Zithromax/Ns IV 12/07/20 22:59 Infused QHS TAYLOR Infusion REMDESIVIR 100 mg/ Sodium 250 mls @ 500 mls/hr 12/05/20 21:00 Chloride IV 12/08/20 21:29 Q24HR@2100 TAYLOR Ondansetron HCl 4 mg 12/04/20 04:00 Ondansetron 4 Mg/2 Ml Inj IV Q8H PRN Nausea And Vomiting Oxycodone/Acetaminophen 1 tab 12/04/20 04:00 Oxycodone /Acetaminophen 5-325mg Tab PO Q6H PRN Pain, Moderate (4-6) Sodium Chloride 10 ml 12/04/20 10:00 12/04/20 22:48 Sodium Chloride 0.9% 10 Ml Flush Syringe IV 10 ml BID TAYLOR Administration Sodium Chloride 10 ml 12/04/20 04:00 Sodium Chloride 0.9% 10 Ml Flush Syringe IV PRN PRN LINE FLUSH Sodium Chloride 50 ml 12/04/20 17:30 12/04/20 22:46 Sodium Chloride 0.9% 50 Ml Ivpb IV 12/07/20 21:01 50 ml Q24HR@2100 TAYLOR Administration
[2020-12-05] MEDS: FAMOTIDINE 20 MG TAB PO SCH ×2 (09:39→21:33)
[2020-12-05] MEDS: dexAMETHasone 4 MG/ML VIAL IV SCH (09:39)
--- NOTE | 2020-12-05 12:32 | Vascular Lab Report ---
DUPLEX DOPPLER LOWER EXTREMITY VEINS, BILATERAL INDICATION / CLINICAL INFORMATION: Covid 19/elevated D-dimers/rule out DVT. TECHNIQUE: Duplex doppler imaging was performed through the veins of both lower extremities using emilee ous compression and other maneuvers. COMPARISON: None available. FINDINGS: RIGHT COMMON FEMORAL VEIN: Negative. RIGHT FEMORAL VEIN: Negative. RIGHT POPLITEAL VEIN: Negative. RIGHT CALF VEINS: Negative. LEFT COMMON FEMORAL VEIN: Negative. LEFT FEMORAL VEIN: Negative. LEFT POPLITEAL VEIN: Negative. LEFT CALF VEINS: Negative. ADDITIONAL FINDINGS: None. IMPRESSION: 1. No sonographic evidence for DVT in either lower extremity. Signer Name: Peewee Molina MD Signed: 12/05/2020 12:28 PM Workstation Name: [id number]
--- NOTE | 2020-12-05 13:38 | Progress Note ---
Assessment and Plan Cultures: SARS CoV2 PCR: positive A/P: 60-year-old female with COPD on home oxygen admitted with: #Bilateral COVID-19 pneumonia: Procalcitonin 0.05, CRP 25.2. Patient got 2 doses of the Pfizer vaccine but got symptomatic the day of the 2nd shot. #Acute on chronic hypoxic respiratory failure: On nasal cannula #COPD on home oxygen Recs: IV Remdesivir x 5 days Continue steroids x 10 days azithromycin discontinued, procalcitonin is low monitor inflammatory markers, orders placed oxygen weaning as tolerated to her baseline Tj Gonzales MD, FACP [facility] O: [phone] F: [phone] Subjective Date of service: 12/05/20 Interval history: no fever. COVID-19 PCR positive. Hypoxic requiring supplemental oxygen. Remdesivir started. Procalcitonin 0.05, CRP 25.2. Objective - Exam Narrative Exam: Physical Exam: Constitutional: Alert, cooperative. No acute distress Head, Ears, Nose: Normocephalic, atraumatic. External ears, nose normal Eyes: Conjunctivae/corneas clear. No icterus. No ptosis. Neck: Supple, no meningeal signs Oral: Deferred Cardiovascular: S1, S2 + Respiratory: Few rhonchi GI: Soft, non-tender; bowel sounds normal. No peritoneal signs Musculoskeletal: No pedal edema, no cyanosis. Skin: No rash or abscess Hem/Lymphatic: No palpable cervical or supraclavicular nodes. No lymphangitis Psych: Mood ok. Affect normal Neurological: Awake, alert, oriented. No gross abnormality - Constitutional Vitals: Vital Signs Temp Pulse Resp BP Pulse Ox 97.8 F 96 H 18 156/74 96 12/05/20 03:39 12/05/20 08:55 12/05/20 08:55 12/05/20 03:39 12/05/20 13:06 Temperature -Last 24 Hours Temperature 97.8 F Temperature 97.8 F Temperature 98.6 F - Labs CBC & Chem 7: 12/03/20 15:30 12/04/20 18:34 Labs: Abnormal lab results 12/04/20 12/04/20 Range/Units 18:34 Unknown Sodium 135 L (137-145) mmol/L Creatinine 0.5 L (0.6-1.2) mg/dL Glucose 185 H (65-100) mg/dL Albumin 3.0 L (3.9-5) g/dL Coronavirus (PCR) Positive A (Negative)
--- NOTE | 2020-12-05 17:35 | Electrocardiograph Report ---
[facility] Test Date: 2020-12-03 Test Time: 15:01:19 Pat Name: SD BRYANT Department: Room: A358 Gender: F Financial Advocate: HUSSEIN : 1960 Requested By: KATIA DAS III Order Number: [id number] Reading MD: Bill Hayden Measurements Intervals [place] Rate: 112 P: 65 MO: 131 QRS: 4 QRSD: 72 T: 56 QT: 312 QTc: 426 Interpretive Statements Sinus tachycardia LAE, consider biatrial enlargement Low voltage, precordial leads No previous ECG available for comparison Electronically Signed On 12-05-2020 17:35:27 EDT by Bill Hayden
--- NOTE | 2020-12-05 18:03 | Electrocardiograph Report ---
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
[2020-12-05] MEDS ORDERED: ALBUTEROL 8.5 GM MDI INHALATION IH PRN (19:59)
[2020-12-05 21:20] LABS: Alanine Aminotransferase 19 units/L (7-56); Albumin 3.5 g/dL (3.9-5); BUN/Creatinine Ratio 20; Basophils % (Auto) 0.1 % (0.0-1.8); Blood Urea Nitrogen 14 mg/dL (7-17); Calcium 9.2 mg/dL (8.4-10.2); Eosinophils % (Auto) 0.2 % (0.0-4.3); Hematocrit 39.1 % (30.3-42.9); Hemoglobin 12.8 gm/dl (10.1-14.3); Hemolysis Index 4; Lymphocytes # (Auto) 0.7 K/mm3 (1.2-5.4); Lymphocytes % (Auto) 8.9 % (13.4-35.0); Mean Corpuscular HGB Conc 33 % (30-34); Mean Corpuscular Volume 83 fl (79-97); Monocytes # (Auto) 1.1 K/mm3 (0.0-0.8); Monocytes % (Auto) 13.6 % (0.0-7.3); Platelet Count 291 K/mm3 (140-440); Red Blood Count 4.74 M/mm3 (3.65-5.03); Red Cell Distribution Width 15.2 % (13.2-15.2)
[2020-12-05] MEDS: REMDESIVIR 100 MG in SODIUM CHLORIDE 0.9% 250ML 250 ML IV SCH (21:31)
[2020-12-05] MEDS: SODIUM CHLORIDE 0.9% 50 ML IVPB IV SCH (21:32)
[2020-12-06] MEDS: HEPARIN 5,000 UNIT/1 ML VIAL SUB-Q SCH ×2 (05:06→05:11)
[2020-12-06 08:37] LABS: Alanine Aminotransferase 22 units/L (7-56); Albumin 3.1 g/dL (3.9-5); Blood Urea Nitrogen 12 mg/dL (7-17); Calcium 9.1 mg/dL (8.4-10.2); Hemolysis Index 292
[2020-12-06 08:40] LABS: BUN/Creatinine Ratio 24
--- NOTE | 2020-12-06 09:34 | Progress Note ---
Assessment and Plan Assessment and plan: Acute hypoxic respiratory failure Requiring supplemental oxygen on admission Oxygen titrate O2 sats to more than 90% BiPAP as needed, CPAP at night Guaifenesin as needed for cough Home oxygen evaluation prior to discharge May consider pulmonary consult if patient respiratory status declines COVID-19 pneumonia COVID 19 PCR +, had received 2 doses of Pfizer Covid vaccine Oxygen titrate O2 sats more than 90% Droplet, contact isolation Oxygen, titrate O2 sats to more than 90% Dexamethasone, remdesivir[patient was hypoxic on admission] Zithromax discontinued by ID Procalcitonin low CXR on admission demonstrates diffuse bilateral pulmonary opacities mostly in th e left lung. Please refer to official read by radiology CTA chest: No large PE identified, bilateral atypical pneumonia, prominent mediastinal and left axillary lymph node. Please refer to official read by radiology Bilateral lower extremity ultrasound: Negative for DVT in bilateral lower extremities. Please refer to official report Check inflammatory markers Follow cultures, supportive prison O2 evaluation Prone positioning as tolerated Patient reports that she took COVID-19 vaccination ID following Elevated D-dimers; CTA chest; no large PE identified, Limited eval of pulmonary arteries bilateral atypical appearing pneumonia,, prominent mediastinal and left axillary nodes bilateral lower extremity venous Doppler: Negative Morbid obesity; BMI 56.3 Patient needs dietary modification, exercise as tolerated and weight reduction, When medically stable Diarrhea Likely self-limited, could be due to underlying Covid infection Encourage adequate p.o. hydration We will continue to monitor Endometriosis Patient follows with outpatient gynecology Was supposed to undergo hysterectomy outpatient however hospitalized for Covid Significant vaginal bleeding noted overnight however patient is hemodynamically stable and patient states that bleeding has slowed down discontinued DVT prophylaxis SCDs We will check a CBC. 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 Has undergone a sleep study. Uses CPAP at night. We will order for use at night. Hyponatremia (improving) Hyponatremia; gentle hydration with normal saline Closely monitor electrolytes Hypocalcemia (resolved) DVT prophylaxis--GI prophylaxis Subcutaneous heparin GI prophylaxis Pepcid 20 mg p.o. twice daily We will closely monitor the patient and adjust the management as needed Plan of care reviewed with the patient and her nurse Pepper Picker recommendations noted and appreciated Hospital Course to date: 12/06/2020: Plan to add as needed cough medication, discontinue DVT prophylaxis. Discussed with patient's nurse who will attempt to walk with patient around room off of oxygen. If patient feels better tomorrow morning may consider discharge. Per ID, if patient feels better does not need to complete remdesivir course. 12/05/2020: Patient resting comfortably on encounter. All findings from CXR, CTA chest, bilateral lower extremity Dopplers noted. ID recommendations noted. Discontinued azithromycin. Patient has a history of obstructive sleep apnea, will order CPAP nightly. Will follow up for clinical improvement. 12/04/2020 : patient was admitted COVID-19 infection; Hypoxia on admission, Mona nue dexamethasone, remdesivir, Inflammatory markers q48h, oxygen evaluation, ID following History Interval history: 12/06: Overnight patient states that she had issues with menorrhagia and diarrhea. She also states that the cough is painful for her. She states that overall though she is able to get up and walk around independently and does not feel excessively short of breath. She states that besides the aforementioned symptoms overall she is feeling okay. Patient reassured that diarrhea should self resolve but we will continue monitoring. Encouraged patient to aggressively hydrate. 12/05 no acute complaints. Resting comfortably. Patient states that she had gotten Pfizer vaccine. She denies any chest pain however understandably does have some shortness of breath. She has a history of obstructive sleep apnea per medical records and uses a CPAP at night. Hospitalist Physical - Physical exam Narrative exam: Constitutional: Alert, cooperative. No acute distress. Elevated BMI. Head, Ears, Nose: Normocephalic, atraumatic. External ears, nose normal nebulizer mask in place Eyes: Conjunctivae/corneas clear. No icterus. No ptosis. Neck: Supple, no meningeal signs Oral: Deferred Cardiovascular: S1, S2 + Respiratory: distant lung sounds. Bilateral wheezes. GI: Soft, non-tender; bowel sounds normal. No peritoneal signs Musculoskeletal: No pedal edema, no cyanosis. Skin: No rash or abscess Hem/Lymphatic: No palpable cervical or supraclavicular nodes. No lymphangitis Psych: Mood ok. Affect normal Neurological: Awake, alert, oriented. No gross abnormality - Constitutional Vitals: Temp Pulse Resp BP Pulse Ox 98.3 F 101 H 22 157/80 100 12/06/20 06:54 12/06/20 06:54 07/31/21 06:54 12/06/20 06:54 12/06/20 06:54 General appearance: Present: no acute distress, well-nourished, obese (Morbidly obese) HEART Score - HEART Score Troponin: Troponin T < 0.010 ng/mL (0.00-0.029) 12/03/20 21:02 Results - Labs CBC & Chem 7: 12/05/20 20:38 12/06/20 06:46 Labs: Laboratory Last Values WBC 8.0 K/mm3 (4.5-11.0) 12/05/20 20:38 RBC 4.74 M/mm3 (3.65-5.03) 12/05/20 20:38 Hgb 12.8 gm/dl (10.1-14.3) 12/05/20 20:38 Hct 39.1 % (30.3-42.9) 12/05/20 20:38 MCV 83 fl (79-97) 12/05/20 20:38 MCH 27 pg (28-32) L 12/05/20 20:38 MCHC 33 % (30-34) 12/05/20 20:38 RDW 15.2 % (13.2-15.2) 12/05/20 20:38 Plt Count 291 K/mm3 (140-440) 12/05/20 20:38 Lymph % (Auto) 8.9 % (13.4-35.0) L 12/05/20 20:38 [place] % (Auto) 13.6 % (0.0-7.3) H 12/05/20 20:38 Eos % (Auto) 0.2 % (0.0-4.3) 12/05/20 20:38 Baso % (Auto) 0.1 % (0.0-1.8) 12/05/20 20:38 Lymph # (Auto) 0.7 K/mm3 (1.2-5.4) L 12/05/20 20:38 [place] # (Auto) 1.1 K/mm3 (0.0-0.8) H 12/05/20 20:38 Eos # (Auto) 0.0 K/mm3 (0.0-0.4) 12/05/20 20:38 Baso # (Auto) 0.0 K/mm3 (0.0-0.1) 12/05/20 20:38 Seg Neutrophils % 77.2 % (40.0-70.0) H 12/05/20 20:38 Seg Neutrophils # 6.2 K/mm3 (1.8-7.7) 12/05/20 20:38 PT 14.3 Sec. (12.2-14.9) 12/03/20 15:30 INR 1.05 (0.87-1.13) 12/03/20 15:30 APTT 37.1 Sec. (24.2-36.6) H 12/03/20 15:30 D-Dimer 636.30 ng/mlDDU (0-234) H 12/06/20 06:46 Sodium 138 mmol/L (137-145) 12/06/20 06:46 Potassium 5.0 mmol/L (3.6-5.0) D 12/06/20 06:46 Chloride 98.9 mmol/L (98-107) 12/06/20 06:46 Carbon Dioxide 25 mmol/L (22-30) 12/06/20 06:46 Anion Gap 19 mmol/L 12/06/20 06:46 BUN 12 mg/dL (7-17) 12/06/20 06:46 Creatinine 0.5 mg/dL (0.6-1.2) L 12/06/20 06:46 Estimated GFR > 60 ml/min 12/06/20 06:46 BUN/Creatinine Ratio 24 % 12/06/20 06:46 Glucose 102 mg/dL (65-100) H 12/06/20 06:46 Calcium 9.1 mg/dL (8.4-10.2) 12/06/20 06:46 Ferritin 675.4 ng/mL (10.0-200.0) H 12/06/20 06:46 Total Bilirubin 0.40 mg/dL (0.1-1.2) 12/06/20 06:46 AST 47 units/L (5-40) H 12/06/20 06:46 ALT 22 units/L (7-56) 12/06/20 06:46 Alkaline Phosphatase 54 units/L (35-129) 12/06/20 06:46 Lactate Dehydrogenase 421 units/L (91-180) H 12/04/20 02:30 Troponin T < 0.010 ng/mL (0.00-0.029) 12/03/20 21:02 C-Reactive Protein 8.70 mg/dL (0.00-1.30) H 12/06/20 06:46 Total Protein 8.2 g/dL (6.3-8.2) 12/06/20 06:46 Albumin 3.1 g/dL (3.9-5) L 12/06/20 06:46 Albumin/Globulin Ratio 0.6 % 12/06/20 06:46 Procalcitonin < 0.05 ng/mL (<0.15) 12/04/20 02:30 Coronavirus (PCR) Positive (Negative) A 12/04/20 Unknown Warner/IV: Voiding Method Toilet Active Medications - Current Medications Current Medications: Generic Name Dose Route Start Last Admin Trade Name Freq PRN Reason Stop Dose Admin Acetaminophen 650 mg 12/04/20 04:00 Acetaminophen 325 Mg Tab PO Q4H PRN Pain MILD(1-3)/Fever >100.5/[place] Albuterol 2 puff 12/05/20 19:59 Albuterol 8.5 Gm Mdi Inhalation IH Q4HRT PRN Shortness Of Breath Dexamethasone 8 mg 12/05/20 13:39 Dexamethasone 4 Mg/Ml Vial IV 12/13/20 10:01 DAILY TAYLOR Famotidine 20 mg 12/04/20 10:00 12/05/20 21:33 Famotidine 20 Mg Tab PO 20 mg BID TAYLOR Administration Heparin Sodium (Porcine) 5,000 unit 12/04/20 06:00 12/06/20 05:11 Heparin 5,000 Unit/1 Ml Vial SUB-Q Not Given Q8HR TAYLOR Hydromorphone HCl 0.5 mg 12/04/20 04:00 Hydromorphone 1 Mg/1 Ml Inj IV Q3H PRN Pain , Severe (7-10) REMDESIVIR 100 mg/ Sodium 250 mls @ 500 mls/hr 12/05/20 21:00 12/05/20 23:02 Chloride IV 12/08/20 21:29 Infused Q24HR@2100 [facility] Infusion Ondansetron HCl 4 mg 12/04/20 04:00 Ondansetron 4 Mg/2 Ml Inj IV Q8H PRN Nausea And Vomiting Oxycodone/Acetaminophen 1 tab 12/04/20 04:00 Oxycodone /Acetaminophen 5-325mg Tab PO Q6H PRN Pain, Moderate (4-6) Sodium Chloride 10 ml 12/04/20 10:00 12/05/20 21:33 Sodium Chloride 0.9% 10 Ml Flush Syringe IV 10 ml BID TAYLOR Administration Sodium Chloride 10 ml 12/04/20 04:00 Sodium Chloride 0.9% 10 Ml Flush Syringe IV PRN PRN LINE FLUSH Sodium Chloride 50 ml 12/05/20 21:00 12/05/20 21:32 Sodium Chloride 0.9% 50 Ml Ivpb IV 12/08/20 21:01 50 ml Q24HR@2100 TAYLOR Administration
[2020-12-06] MEDS: FAMOTIDINE 20 MG TAB PO SCH ×2 (09:56→22:54)
[2020-12-06] MEDS: dexAMETHasone 4 MG/ML VIAL IV SCH (09:56)
[2020-12-06] MEDS ORDERED: guaiFENesin DM 200/20 MG ORAL LIQD 10 ML PO PRN (10:36)
--- NOTE | 2020-12-06 11:02 | Progress Note ---
Assessment and Plan Cultures: SARS CoV2 PCR: positive A/P: 60-year-old female with COPD on home oxygen admitted with: #Bilateral COVID-19 pneumonia: Procalcitonin 0.05, CRP 25.2. Patient got 2 doses of the Pfizer vaccine but got symptomatic the day of the 2nd shot. #Acute on chronic hypoxic respiratory failure: On nasal cannula #COPD on home oxygen Recs: continue IV Remdesivir x 5 days max Continue steroids x 10 days CRP improving oxygen weaning as tolerated to her baseline. If she continues to improve, does not need to remain inhouse to complete 5 days of Remdesivir. Tj Gonzales MD, FACP [facility] ([facility] O: [phone] F: [phone] Subjective Date of service: 12/06/20 Interval history: No fever. Remains on oxygen. CRP down to 8.7. Objective - Exam Narrative Exam: Physical Exam: deferred to minimize risk of transmission. Chart reviewed - Constitutional Vitals: Vital Signs Temp Pulse Resp BP Pulse Ox 98.3 F 101 H 22 157/80 100 12/06/20 06:54 12/06/20 06:54 12/06/20 06:54 12/06/20 06:54 12/06/20 06:54 Temperature -Last 24 Hours Temperature 98.3 F Temperature 98.1 F Temperature 98.0 F Temperature 98.0 F - Labs CBC & Chem 7: 12/05/20 20:38 12/06/20 06:46 Labs: Abnormal lab results 12/05/20 12/05/20 12/06/20 Range/Units 20:38 20:38 06:46 MCH 27 L (28-32) pg Lymph % (Auto) 8.9 L (13.4-35.0) % [place] % (Auto) 13.6 H (0.0-7.3) % Lymph # (Auto) 0.7 L (1.2-5.4) K/mm3 [place] # (Auto) 1.1 H (0.0-0.8) K/mm3 Seg Neutrophils % 77.2 H (40.0-70.0) % D-Dimer (0-234) ng/mlDDU Creatinine 0.5 L (0.6-1.2) mg/dL Glucose 176 H 102 H (65-100) mg/dL Ferritin (10.0-200.0) ng/mL AST 47 H (5-40) units/L C-Reactive Protein (0.00-1.30) mg/dL Albumin 3.5 L 3.1 L (3.9-5) g/dL 12/06/20 12/06/20 12/06/20 Range/Units 06:46 06:46 06:46 MCH (28-32) pg Lymph % (Auto) (13.4-35.0) % [place] % (Auto) (0.0-7.3) % Lymph # (Auto) (1.2-5.4) K/mm3 [place] # (Auto) (0.0-0.8) K/mm3 Seg Neutrophils % (40.0-70.0) % D-Dimer 636.30 H (0-234) ng/mlDDU Creatinine (0.6-1.2) mg/dL Glucose (65-100) mg/dL Ferritin 675.4 H (10.0-200.0) ng/mL AST (5-40) units/L C-Reactive Protein 8.70 H (0.00-1.30) mg/dL Albumin (3.9-5) g/dL
[2020-12-06] MEDS: SODIUM CHLORIDE 0.9% 50 ML IVPB IV SCH (22:53)
[2020-12-06] MEDS: REMDESIVIR 100 MG in SODIUM CHLORIDE 0.9% 250ML 250 ML IV SCH (22:54)
[2020-12-07 07:28] LABS: Basophils % (Auto) 0.1 % (0.0-1.8); Hemoglobin 12.2 gm/dl (10.1-14.3); Lymphocytes # (Auto) 1.9 K/mm3 (1.2-5.4); Lymphocytes % (Auto) 17.5 % (13.4-35.0); Mean Corpuscular HGB Conc 32 % (30-34); Mean Corpuscular Volume 83 fl (79-97); Monocytes # (Auto) 1.3 K/mm3 (0.0-0.8); Monocytes % (Auto) 11.4 % (0.0-7.3); Platelet Count 345 K/mm3 (140-440)
[2020-12-07 07:43] LABS: Alanine Aminotransferase 35 units/L (7-56); Blood Urea Nitrogen 15 mg/dL (7-17); Calcium 8.4 mg/dL (8.4-10.2); Hemolysis Index 291
[2020-12-07 07:52] LABS: BUN/Creatinine Ratio 30
--- NOTE | 2020-12-07 10:27 | Progress Note ---
Assessment and Plan Assessment and plan: Acute hypoxic respiratory failure Requiring supplemental oxygen on admission Oxygen titrate O2 sats to more than 90% BiPAP as needed, CPAP at night Guaifenesin as needed for cough Home oxygen evaluation prior to discharge May consider pulmonary consult if patient respiratory status declines COVID-19 pneumonia COVID 19 PCR +, had received 2 doses of Pfizer Covid vaccine Oxygen titrate O2 sats more than 90% Droplet, contact isolation Oxygen, titrate O2 sats to more than 90% Dexamethasone, remdesivir[patient was hypoxic on admission] Zithromax discontinued by ID Procalcitonin low CXR on admission demonstrates diffuse bilateral pulmonary opacities mostly in th e left lung. Please refer to official read by radiology CTA chest: No large PE identified, bilateral atypical pneumonia, prominent mediastinal and left axillary lymph node. Please refer to official read by radiology Bilateral lower extremity ultrasound: Negative for DVT in bilateral lower extremities. Please refer to official report Check inflammatory markers Follow cultures, supportive senior care O2 evaluation Prone positioning as tolerated Patient reports that she took COVID-19 vaccination ID following Elevated D-dimers; CTA chest; no large PE identified, Limited eval of pulmonary arteries bilateral atypical appearing pneumonia,, prominent mediastinal and left axillary nodes bilateral lower extremity venous Doppler: Negative Morbid obesity; BMI 56.3 Patient needs dietary modification, exercise as tolerated and weight reduction, When medically stable Diarrhea Likely self-limited, could be due to underlying Covid infection Encourage adequate p.o. hydration We will continue to monitor Endometriosis Patient follows with outpatient gynecology Was supposed to undergo hysterectomy outpatient however hospitalized for Covid Significant vaginal bleeding noted overnight however patient is hemodynamically stable and patient states that bleeding has slowed down discontinued DVT prophylaxis SCDs We will check a CBC. Not anemic. 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 Has undergone a sleep study. Uses home oxygen at night. States that she has been told to use a CPAP. Will order CPAP nightly Hyponatremia (improving) Hyponatremia; gentle hydration with normal saline Closely monitor electrolytes Hypocalcemia (resolved) DVT prophylaxis--GI prophylaxis Subcutaneous heparin discontinued Hold SCD GI prophylaxis Pepcid 20 mg p.o. twice daily We will closely monitor the patient and adjust the management as needed Plan of care reviewed with the patient and her nurse Teacher Citizenship recommendations noted and appreciated Hospital Course to date: 12/07/2020: Plan to continue current Covid therapies. CBC this a.m. normal patient is not anemic. Will monitor respiratory status. Patient will need continuous home O2 however uses home oxygen nightly already so does not need additional equipment and will coordinate with [employer]. 12/06/2020: Plan to add as needed cough medication, discontinue DVT prophylaxis. Discussed with patient's nurse who will attempt to walk with patient around room off of oxygen. If patient feels better tomorrow morning may consider discharge. Per ID, if patient feels better does not need to complete remdesivir course. 12/05/2020: Patient resting comfortably on encounter. All findings from CXR, CTA chest, bilateral lower extremity Dopplers noted. ID recommendations noted. Discontinued azithromycin. Patient has a history of obstructive sleep apnea, will order CPAP nightly. Will follow up for clinical improvement. 12/04/2020 : patient was admitted COVID-19 infection; Hypoxia on admission, Continue dexamethasone, remdesivir, Inflammatory markers q48h, oxygen evaluation, ID following History Interval history: 12/07/2020: Patient symptoms continue to improve compared to yesterday. RN this a.m. did a walking O2 test. Patient will require home oxygen. After discussion with patient she states that she uses her oxygen at night primarily however she will use it throughout the day. She states that she does not need additional set up for home oxygen. She states that she continues to experience symptom of diarrhea and menorrhagia however they have improved. We discussed potential d ischarge tomorrow. RN and care team aware of plan. 12/06: Overnight patient states that she had issues with menorrhagia and diarrhea. She also states that the cough is painful for her. She states that overall though she is able to get up and walk around independently and does not feel excessively short of breath. She states that besides the aforementioned symptoms overall she is feeling okay. Patient reassured that diarrhea should self resolve but we will continue monitoring. Encouraged patient to aggressively hydrate. 12/05 no acute complaints. Resting comfortably. Patient states that she had gotten Pfizer vaccine. She denies any chest pain however understandably does have some shortness of breath. She has a history of obstructive sleep apnea per medical records and uses a CPAP at night. Hospitalist Physical - Physical exam Narrative exam: Constitutional: Alert, cooperative. No acute distress. Elevated BMI. Head, Ears, Nose: Normocephalic, atraumatic. On nasal cannula 2 L. Eyes: Conjunctivae/corneas clear. No icterus. No ptosis. Neck: Supple, no meningeal signs Oral: Deferred Cardiovascular: S1, S2 + Respiratory: distant lung sounds. Bilateral wheezes. GI: Soft, non-tender; bowel sounds normal. No peritoneal signs Musculoskeletal: No pedal edema, no cyanosis. Skin: No rash or abscess Hem/Lymphatic: No palpable cervical or supraclavicular nodes. No lymphangitis Psych: Mood ok. Affect normal Neurological: Awake, alert, oriented. No gross abnormality - Constitutional Vitals: Temp Pulse Resp BP Pulse Ox 98.6 F 88 16 165/70 96 12/07/20 04:19 12/07/20 04:19 12/07/20 04:19 12/07/20 04:19 12/07/20 10:25 General appearance: Present: no acute distress, well-nourished, obese (Morbidly obese) HEART Score - HEART Score Troponin: Troponin T < 0.010 ng/mL (0.00-0.029) 12/03/20 21:02 Results - Labs CBC & Chem 7: 12/07/20 06:03 12/07/20 06:03 Labs: Laboratory Last Values WBC 11.0 K/mm3 (4.5-11.0) 12/07/20 06:03 RBC 4.60 M/mm3 (3.65-5.03) 12/07/20 06:03 Hgb 12.2 gm/dl (10.1-14.3) 12/07/20 06:03 Hct 38.0 % (30.3-42.9) 12/07/20 06:03 MCV 83 fl (79-97) 12/07/20 06:03 MCH 27 pg (28-32) L 12/07/20 06:03 MCHC 32 % (30-34) 12/07/20 06:03 RDW 15.0 % (13.2-15.2) 12/07/20 06:03 Plt Count 345 K/mm3 (140-440) 12/07/20 06:03 Lymph % (Auto) 17.5 % (13.4-35.0) 12/07/20 06:03 [place] % (Auto) 11.4 % (0.0-7.3) H 12/07/20 06:03 Eos % (Auto) 0.0 % (0.0-4.3) 12/07/20 06:03 Baso % (Auto) 0.1 % (0.0-1.8) 12/07/20 06:03 Lymph # (Auto) 1.9 K/mm3 (1.2-5.4) 12/07/20 06:03 [place] # (Auto) 1.3 K/mm3 (0.0-0.8) H 12/07/20 06:03 Eos # (Auto) 0.0 K/mm3 (0.0-0.4) 12/07/20 06:03 Baso # (Auto) 0.0 K/mm3 (0.0-0.1) 12/07/20 06:03 Seg Neutrophils % 71.0 % (40.0-70.0) H 12/07/20 06:03 Seg Neutrophils # 7.8 K/mm3 (1.8-7.7) H 12/07/20 06:03 PT 14.3 Sec. (12.2-14.9) 12/03/20 15:30 INR 1.05 (0.87-1.13) 12/03/20 15:30 APTT 37.1 Sec. (24.2-36.6) H 12/03/20 15:30 D-Dimer 636.30 ng/mlDDU (0-234) H 12/06/20 06:46 Sodium 141 mmol/L (137-145) 12/07/20 06:03 Potassium 4.6 mmol/L (3.6-5.0) 12/07/20 06:03 Chloride 100.5 mmol/L (98-107) 12/07/20 06:03 Carbon Dioxide 28 mmol/L (22-30) 12/07/20 06:03 Anion Gap 17 mmol/L 12/07/20 06:03 BUN 15 mg/dL (7-17) 12/07/20 06:03 Creatinine 0.5 mg/dL (0.6-1.2) L 12/07/20 06:03 Estimated GFR > 60 ml/min 12/07/20 06:03 BUN/Creatinine Ratio 30 % 12/07/20 06:03 Glucose 112 mg/dL (65-100) H 12/07/20 06:03 Calcium 8.4 mg/dL (8.4-10.2) 12/07/20 06:03 Ferritin 675.4 ng/mL (10.0-200.0) H 12/06/20 06:46 Total Bilirubin 0.40 mg/dL (0.1-1.2) 12/07/20 06:03 AST 49 units/L (5-40) H 12/07/20 06:03 ALT 35 units/L (7-56) 12/07/20 06:03 Alkaline Phosphatase 50 units/L (35-129) 12/07/20 06:03 Lactate Dehydrogenase 421 units/L (91-180) H 12/04/20 02:30 Troponin T < 0.010 ng/mL (0.00-0.029) 12/03/20 21:02 C-Reactive Protein 8.70 mg/dL (0.00-1.30) H 12/06/20 06:46 Total Protein 7.9 g/dL (6.3-8.2) 12/07/20 06:03 Albumin 3.0 g/dL (3.9-5) L 12/07/20 06:03 Albumin/Globulin Ratio 0.6 % 12/07/20 06:03 Procalcitonin < 0.05 ng/mL (<0.15) 12/04/20 02:30 Coronavirus (PCR) Positive (Negative) A 12/04/20 Unknown Warner/IV: Voiding Method Toilet Active Medications - Current Medications Current Medications: Generic Name Dose Route Start Last Admin Trade Name Freq PRN Reason Stop Dose Admin Acetaminophen 650 mg 12/04/20 04:00 Acetaminophen 325 Mg Tab PO Q4H PRN Pain MILD(1-3)/Fever >100.5/[place] Albuterol 2 puff 12/05/20 19:59 Albuterol 8.5 Gm Mdi Inhalation IH Q4HRT PRN Shortness Of Breath Amlodipine Besylate 5 mg 12/07/20 07:54 Amlodipine 5 Mg Tab PO QDAY TAYLOR Dexamethasone 8 mg 12/05/20 13:39 12/06/20 09:56 Dexamethasone 4 Mg/Ml Vial IV 12/13/20 10:01 8 mg DAILY TAYLOR Administration Famotidine 20 mg 12/04/20 10:00 12/06/20 22:54 Famotidine 20 Mg Tab PO 20 mg BID TAYLOR Administration Guaifenesin 10 ml 12/06/20 10:36 12/06/20 15:26 Guaifenesin Dm 200/20 Mg Oral Liqd 10 Ml PO 10 ml Q4H PRN Administration Cough Hydromorphone HCl 0.5 mg 12/04/20 04:00 Hydromorphone 1 Mg/1 Ml Inj IV Q3H PRN Pain , Severe (7-10) REMDESIVIR 100 mg/ Sodium 250 mls @ 500 mls/hr 12/05/20 21:00 12/06/20 22:54 Chloride IV 12/08/20 21:29 500 mls/hr Q24HR@2100 TAYLOR Administration Ondansetron HCl 4 mg 12/04/20 04:00 Ondansetron 4 Mg/2 Ml Inj IV Q8H PRN Nausea And Vomiting Oxycodone/Acetaminophen 1 tab 12/04/20 04:00 Oxycodone /Acetaminophen 5-325mg Tab PO Q6H PRN Pain, Moderate (4-6) Sodium Chloride 10 ml 12/04/20 10:00 12/06/20 22:54 Sodium Chloride 0.9% 10 Ml Flush Syringe IV 10 ml BID TAYLOR Administration Sodium Chloride 10 ml 12/04/20 04:00 Sodium Chloride 0.9% 10 Ml Flush Syringe IV PRN PRN LINE FLUSH Sodium Chloride 50 ml 12/05/20 21:00 12/06/20 22:53 Sodium Chloride 0.9% 50 Ml Ivpb IV 12/08/20 21:01 50 ml Q24HR@2100 TAYLOR Administration
[2020-12-07] MEDS: amLODIPine 5 MG TAB PO SCH ×2 (10:29)
[2020-12-07] MEDS: FAMOTIDINE 20 MG TAB PO SCH ×2 (10:30→22:30)
[2020-12-07] MEDS: dexAMETHasone 4 MG/ML VIAL IV SCH (10:30)
[2020-12-07] MEDS: REMDESIVIR 100 MG in SODIUM CHLORIDE 0.9% 250ML 250 ML IV SCH (22:29)
[2020-12-07] MEDS: SODIUM CHLORIDE 0.9% 50 ML IVPB IV SCH (22:30)
--- NOTE | 2020-12-08 07:49 | Discharge Summary ---
Providers - Providers Date of Admission: 12/04/20 16:52 Date of discharge: 12/08/20 Attending physician: DAVE ARCEO MD 12/04/20 04:00 Consult to Physician [CONS] Routine Comment: Consulting Provider: GREG BRADFORD Physician Instructions: Reason For Exam: covid Hospitalization Reason for admission: Shortness of breath Condition: Critical Hospital course: Acute hypoxic respiratory failure Requiring supplemental oxygen on admission Oxygen titrate O2 sats to more than 90% BiPAP as needed, CPAP at night Guaifenesin as needed for cough Home oxygen evaluation prior to discharge May consider pulmonary consult if patient respiratory status declines COVID-19 pneumonia COVID 19 PCR +, had received 2 doses of Pfizer Covid vaccine Oxygen titrate O2 sats more than 90% Droplet, contact isolation Oxygen, titrate O2 sats to more than 90% Dexamethasone, remdesivir[patient was hypoxic on admission] Zithromax discontinued by ID Procalcitonin low CXR on admission demonstrates diffuse bilateral pulmonary opacities mostly in the left lung. Please refer to official read by radiology CTA chest: No large PE identified, bilateral atypical pneumonia, prominent mediastinal and left axillary lymph node. Please refer to official read by radiology Bilateral lower extremity ultrasound: Negative for DVT in bilateral lower extremities. Please refer to official report Check inflammatory markers Follow cultures, supportive nursing home O2 evaluation Prone positioning as tolerated Patient reports that she took COVID-19 vaccination ID following Elevated D-dimers; CTA chest; no large PE identified, Limited eval of pulmonary arteries bilateral atypical appearing pneumonia,, prominent mediastinal and left axillary nodes bilateral lower extremity venous Doppler: Negative Morbid obesity; BMI 56.3 Patient needs dietary modification, exercise as tolerated and weight reduction, When medically stable Diarrhea Likely self-limited, could be due to underlying Covid infection Encourage adequate p.o. hydration We will continue to monitor Endometriosis Patient follows with outpatient gynecology Was supposed to undergo hysterectomy outpatient however hospitalized for Covid Significant vaginal bleeding noted overnight however patient is hemodynamically stable and patient states that bleeding has slowed down discontinued DVT prophylaxis SCDs We will check a CBC. Not anemic. Menorrhagia Patient has a history of endometriosis Management as above If patient continues to bleed may consider gynecology consult Obstructive sleep apnea Has an outpatient resawyer. Has undergone a sleep study. Uses home oxygen at night. States that she has been told to use a CPAP. Will order CPAP nightly Hyponatremia (improving) Hyponatremia; gentle hydration with normal saline Closely monitor electrolytes Hypocalcemia (resolved) DVT prophylaxis--GI prophylaxis Subcutaneous heparin discontinued Hold SCD GI prophylaxis Pepcid 20 mg p.o. twice daily We will closely monitor the patient and adjust the management as needed Plan of care reviewed with the patient and her nurse Airline Mechanic recommendations noted and appreciated Hospital Course to date: 12/08/2020: Plan for discharge today. 12/07/2020: Plan to continue current Covid therapies. CBC this a.m. normal patient is not anemic. Will monitor respiratory status. Patient will need continuous home O2 however uses home oxygen nightly already so does not need additional equipment and will coordinate with [email or web address]. 12/06/2020: Plan to add as needed cough medication, discontinue DVT prophylaxis. Discussed with patient's nurse who will attempt to walk with patient around room off of oxygen. If patient feels better tomorrow morning may consider discharge. Per ID, if patient feels better does not need to complete remdesivir course. 12/05/2020: Patient resting comfortably on encounter. All findings from CXR, CTA chest, bilateral lower extremity Dopplers noted. ID recommendations noted. Discontinued azithromycin. Patient has a history of obstructive sleep apnea, will order CPAP nightly. Will follow up for clinical improvement. 12/04/2020 : patient was admitted COVID-19 infection; Hypoxia on admission, Continue dexamethasone, remdesivir, Inflammatory markers q48h, oxygen evaluation, ID following Disposition: [id number] TO HOME OR SELFCARE Final Discharge Diagnosis (Prints w/discharge instructions): SARS-CoV-2 pneum onia Time spent for discharge: 35 - Discharge Diagnoses (1) 2019 novel coronavirus-infected pneumonia (NCIP) Status: Acute (2) Endometriosis Status: Acute (3) Hypertension Status: Acute (4) DVT prophylaxis Status: Acute (5) Pneumonia Status: Acute Qualifiers: Pneumonia type: due to unspecified organism Laterality: bilateral Lung location: unspecified part of lung Qualified Code(s): J18.9 - Pneumonia, unspecified organism (6) Respiratory failure Status: Acute Qualifiers: Chronicity: acute on chronic Respiratory failure complication: hypoxia Qualified Code(s): J96.21 - Acute and chronic respiratory failure with hypoxia (7) SOB (shortness of breath) Status: Acute Core Measure Documentation - Palliative Care Palliative Care/ Comfort Measures: Not Applicable - Core Measures Any of the following diagnoses?: none Exam - Physical Exam Narrative exam: Constitutional: Alert, cooperative. No acute distress. Head, Ears, Nose: Normocephalic, atraumatic. On nasal cannula 2 L. Eyes: Conjunctivae/corneas clear. No icterus. No ptosis. Neck: Supple, no meningeal signs Oral: Deferred Cardiovascular: S1, S2 + Respiratory: distant lung sounds. Bilateral wheezes. GI: Soft, non-tender; bowel sounds normal. No peritoneal signs Musculoskeletal: No pedal edema, no cyanosis. Skin: No rash or abscess Hem/Lymphatic: No palpable cervical or supraclavicular nodes. No lymphangitis Psych: Mood ok. Affect normal Neurological: Awake, alert, oriented. No gross abnormality - Constitutional Vitals: Temp Pulse Resp BP Pulse Ox 98.1 F 101 H 18 145/79 94 12/07/20 16:51 12/07/20 16:51 12/07/20 22:00 12/07/20 16:51 12/08/20 01:00 Plan Plan of Treatment: Sonya Felix. You were admitted for Covid pneumonia. We treated you with IV antibiotics, IV steroids, IV remdesivir. You improved with these interventions. You were also found to have elevated blood pressure with which we controlled with oral amlodipine. Furthermore you have an underlying history of endometriosis which caused you to bleed this admission. We recommend you follow-up with your evaporator repairer to address this issue once you have adequately quarantine. We will be discharging you home today with a prescription for as needed albuterol inhaler, a steroid course (please finish entire course), and blood pressure medication (amlodipine), as well as some as needed cough medication. We recommend you quarantine for total of 10 days since your positive test (12/04/20) or per the direction of your primary care doctor. Follow up with: PRIMARY CARE, [Referring] - 7 Days Prescriptions: amLODIPine 5 mg PO QDAY 30 Days #30 tablet dexAMETHasone [Decadron] 8 mg PO DAILY 8 Days #8 tablet guaiFENesin DM [Guaifenesin Dm Syrup] 10 ml PO Q4H PRN 30 Days #1 bottle PRN Reason: Cough Albuterol Mdi (or & Nicu Only) [ProAir HFA Inhaler] 2 puff IH Q4HRT PRN 30 Days #1 inha PRN Reason: Shortness Of Breath
[2020-12-08] MEDS: amLODIPine 5 MG TAB PO SCH (09:02)
[2020-12-08] MEDS: FAMOTIDINE 20 MG TAB PO SCH (09:03)
[2020-12-08] MEDS: dexAMETHasone 4 MG/ML VIAL IV SCH (09:04)
--- NOTE | 2020-12-08 09:49 | Progress Note ---
Assessment and Plan Cultures: SARS CoV2 PCR: positive A/P: 60-year-old female with COPD on home oxygen admitted with: #Bilateral COVID-19 pneumonia: Procalcitonin 0.05, CRP 25.2. Patient got 2 doses of the Pfizer vaccine but got symptomatic the day of the 2nd shot. #Acute on chronic hypoxic respiratory failure: On nasal cannula #COPD on home oxygen Recs: continue IV Remdesivir x 5 days max Continue steroids x 10 days CRP improving oxygen weaning as tolerated to her baseline. If she continues to improve, does not need to remain inhouse to complete 5 days of Remdesivir. Arnoldo Fairbanks MD [facility] ([facility]) O: [phone] F: [phone] Subjective Date of service: 12/08/20 Interval history: Afebrile, normal white count. On 2 L nasal cannula. Objective - Exam Narrative Exam: Physical exam deferred to reduce risk of transmission of COVID-19. Please refer to primary team's note. - Constitutional Vitals: Vital Signs Temp Pulse Resp BP Pulse Ox 97.8 F 105 H 18 171/93 97 12/08/20 05:07 12/08/20 09:02 12/08/20 05:07 12/08/20 09:02 12/08/20 05:07 Temperature -Last 24 Hours Temperature 97.8 F Temperature 98.1 F - Labs CBC & Chem 7: 12/07/20 06:03 12/07/20 06:03 Labs: Abnormal lab results 12/07/20 Range/Units 11:36 POC Glucose 117 H (70-105) mg/dL
[2020-12-08 13:02] VITALS: BP 135/75
== END 2020-12-08 15:30 | disposition home or self-care (01) | DRG 177 ==
LOC: ED 14:43 → 3A 12-04 02:40 → OBSVTOIN 12-04 16:52 → 3A 12-04 20:20
PROVIDERS: ADMIT Hospitalist; ATTEND Internal Medicine
PROC: XW033E5 Introduction of Remdesivir Anti-infective into Peripheral Vein, Percutaneous Approach, New Technology Group 5 (ICD-10-PCS; principal; 2020-12-04)
DX: U07.1 COVID-19 (principal); J96.21 Acute and chronic respiratory failure with hypoxia; J12.82 Pneumonia due to coronavirus disease 2019; J44.0 Chronic obstructive pulmonary disease with (acute) lower respiratory infection; E44.0 Moderate protein-calorie malnutrition; E87.1 Hypo-osmolality and hyponatremia; Z68.43 Body mass index [BMI] 50.0-59.9, adult; E83.51 Hypocalcemia; E66.01 Morbid (severe) obesity due to excess calories; G47.33 Obstructive sleep apnea (adult) (pediatric); R19.7 Diarrhea, unspecified; N80.9 Endometriosis, unspecified; N92.0 Excessive and frequent menstruation with regular cycle; Z53.29 Procedure and treatment not carried out because of patient's decision for other reasons
CPT/HCPCS: 36415; 71046; 71275; 80053; 82728; 82947; 82962; 83615; 84145; 84484; 85025; 85379; 85610; 85730; 86140; 93005; 93970; 94640; 96365; 96366; 96375; 99291; G0378; J0456; J0696; J1100; J1644; J7050; Q9967; U0003